=== PATIENT | female | born 1940 | race Caucasian/White ===

== ENCOUNTER 2017-06-10 09:15 | Inpatient (IN) | payer OTHER ==
[2017-06-10] MEDS: ACETAMINOPHEN 325 MG TAB PO ×2 (11:41→23:22)
[2017-06-10 11:51] LABS: ADD MAN DIFF? NO
[2017-06-10 11:52] LABS: HEMATOCRIT 45.7 % (37.0-47.0); HEMOGLOBIN 15.8 g/dl (12.0-16.0); MEAN CORPUSCULAR HEMOGLOBIN 29.9 pg (29.0-33.0); MEAN CORPUSCULAR HGB CONC 34.6 g/dl (32.0-37.0); MEAN CORPUSCULAR VOLUME 86.6 fl (82.0-101.0); MEAN PLATELET VOLUME 11.4 fl (7.4-10.4); PLATELET COUNT 219 10^3/UL (140-415); RED BLOOD COUNT 5.28 10^6/ul (4.20-5.40); RED CELL DISTRIBUTION WIDTH 13.2 % (11.5-14.5)
[2017-06-10 11:52] LABS: WHITE BLOOD COUNT 12.4 10^3/ul (4.8-10.8)
[2017-06-10 11:57] LABS: POSITIVE DIFF @See below
[2017-06-10 12:05] LABS: ADD UMIC YES; UR ASCORBIC ACID NEGATIVE (NEGATIVE); UR BILIRUBIN (Dip) NEGATIVE (NEGATIVE); UR BLOOD (Dip) 1+ mg/dL (NEGATIVE); UR CLARITY SLIGHTLY CLOUDY (CLEAR); UR COLOR YELLOW (YELLOW); UR GLUCOSE (Dip) 3+ mg/dL (NEGATIVE); UR KETONES (Dip) 2+ mg/dL (NEGATIVE); UR LEUKOCYTE ESTERASE (Dip) NEGATIVE Leu/ul (NEGATIVE); UR NITRITE (Dip) NEGATIVE (NEGATIVE); UR RBC 3 /HPF (0-5); UR SQUAMOUS EPITHELIAL CELL FEW /HPF (FEW); UR TOTAL PROTEIN (Dip) 2+ mg/dl (NEGATIVE); UR UROBILINOGEN (Dip) NEGATIVE (NEGATIVE); UR WBC 2 /HPF (0-5)
[2017-06-10 12:12] LABS: ALANINE AMINOTRANSFERASE 53 IU/L (13-69); ALBUMIN/GLOBULIN RATIO 1.25; ALKALINE PHOSPHATASE 98 IU/L (42-121); ANION GAP 24 (8-16); ASPARTATE AMINO TRANSFERASE 41 IU/L (15-46); BILIRUBIN,INDIRECT 0.2 mg/dl (0-1.1); BILIRUBIN,TOTAL 0.2 mg/dl (0.2-1.3); BLOOD UREA NITROGEN 7 mg/dl (7-20); CALCIUM 9.7 mg/dl (8.4-10.2); CARBON DIOXIDE 24 mmol/L (21-31); CHLORIDE 98 mmol/L (97-110); CREATININE 0.57 mg/dl (0.44-1.00); GLUCOSE 310 mg/dl (70-220); POTASSIUM 4.1 mmol/L (3.5-5.1); SODIUM 142 mmol/L (135-144)
[2017-06-10 12:14] LABS: INR 0.96; PARTIAL THROMBOPLASTIN TIME 28.1 Sec (25.0-35.0); PROTIME 12.9 Sec (11.9-14.9)
[2017-06-10 12:23] LABS: TROPONIN-I < 0.012 ng/ml (0.00-0.12)
[2017-06-10 12:40] LABS: ANISOCYTOSIS 2+ (0-0); BAND NEUTROPHILS #M 1.4 10^3/ul (0.0-0.6); BAND NEUTROPHILS % (M) 12 % (0-4); BASOPHIL #M 0.1 10^3/ul (0.0-0.0); BASOPHILS % (M) 1 % (0-2); LYMPHOCYTES #M 6.5 10^3/ul (0.8-2.9); LYMPHOCYTES % (M) 53 % (15-51); MICROCYTOSIS 2+ (0-0); PLATELET ESTIMATE NORMAL; POLYCHROMASIA 3+ (0-0); REACTIVE LYMPHOCYTES #M 0.3 10^3/ul (0.0-0.0); REACTIVE LYMPHOCYTES% (M) 3 % (0-0); SEGMENTED NEUTROPHILS (M) % 31 % (39-77); SMUDGE%M 9 % (0-0)
[2017-06-10] MEDS: CEFEPIME 2GM/50 ML (PMX) 50 ML IVPB ×2 (13:18→21:55)
[2017-06-10] MEDS: SODIUM CHLORIDE 0.9% 1L BAG IV* (13:19)
[2017-06-10] MEDS ORDERED: ONDANSETRON 4 MG INJ IV ×2 (13:30→14:30)
[2017-06-10] MEDS: VANCOMYCIN 1 GM (PMX) 250 ML IVPB (13:46)
[2017-06-10 14:10] LABS: LACTIC ACID 2.5 mmol/L (0.5-2.0)
[2017-06-10] MEDS ORDERED: hydrALAzine 20 MG INJ IV (14:30)
[2017-06-10] MEDS ORDERED: NITROGLYCERIN (SL) 0.4 MG TAB SL (14:30)
[2017-06-10] MEDS ORDERED: DOCUSATE SODIUM 100 MG CAP PO (14:30)
[2017-06-10] MEDS ORDERED: NA PHOSPHATE/BIPHOS 133 ML ENEMA PR (14:30)
[2017-06-10] MEDS ORDERED: NACL 0.9% 3 ML SYG IV (14:30)
[2017-06-10] MEDS ORDERED: ALBUTEROL/IPRATROPIUM (NEB) 3 ML AMP HHN (14:30)
[2017-06-10] MEDS ORDERED: LORAZEPAM 2 MG INJ IV (14:30)
[2017-06-10] MEDS ORDERED: morphine 2 MG INJ IV (14:30)
[2017-06-10] MEDS ORDERED: MAGNESIUM HYDROXIDE 30ML CUP PO (14:30)
[2017-06-10] MEDS ORDERED: VANCOMYCIN IV PER PHARMACY XX (14:30)
[2017-06-10 15:07] LABS: FREE T4 (FREE THYROXINE) 1.58 ng/dl (0.78-2.44)
[2017-06-10] MEDS: SOD CHLORIDE 0.9% 1,000 ML IV (15:07)
[2017-06-10] MEDS ORDERED: GLUCOSE GEL 15 GRAM TUBE BUCCAL (15:30)
[2017-06-10] MEDS ORDERED: GLUCOSE GEL 15 GRAM TUBE PO ×2 (15:30)
[2017-06-10] MEDS ORDERED: DEXTROSE 50% 50 ML SYRINGE IV ×2 (15:30)
[2017-06-10] MEDS ORDERED: GLUCAGON 1 MG INJ IM (15:30)
[2017-06-10 16:32] LABS: LACTIC ACID 2.3 mmol/L (0.5-2.0)
[2017-06-10] MEDS: INSULIN ASPART [NOVOLOG] 3 ML PEN SC ×2 (18:33→20:40)
[2017-06-10 19:03] LABS: LACTIC ACID 2.2 mmol/L (0.5-2.0)
[2017-06-10] MEDS: HEPARIN 5,000 UNIT/0.5 ML VIAL SC (20:39)
[2017-06-10 23:17] LABS: LACTIC ACID 1.6 mmol/L (0.5-2.0)
[2017-06-11] MEDS: SOD CHLORIDE 0.9% 1,000 ML IV ×2 (00:24→10:24)
[2017-06-11] MEDS: INSULIN ASPART [NOVOLOG] 3 ML PEN SC ×6 (01:16→20:51)
[2017-06-11] MEDS: ACCU-CHEK XX (01:18)
[2017-06-11 02:46] LABS: LACTIC ACID 1.2 mmol/L (0.5-2.0)
[2017-06-11 08:33] LABS: WHITE BLOOD COUNT 8.2 10^3/ul (4.8-10.8)
[2017-06-11 08:34] LABS: HEMATOCRIT 39.1 % (37.0-47.0); HEMOGLOBIN 13.4 g/dl (12.0-16.0); MEAN CORPUSCULAR HGB CONC 34.3 g/dl (32.0-37.0); MEAN CORPUSCULAR VOLUME 87.7 fl (82.0-101.0); MEAN PLATELET VOLUME 11.6 fl (7.4-10.4); PLATELET COUNT 184 10^3/UL (140-415); RED BLOOD COUNT 4.46 10^6/ul (4.20-5.40); RED CELL DISTRIBUTION WIDTH 13.3 % (11.5-14.5)
[2017-06-11] MEDS: PANTOPRAZOLE (EC) 40 MG TAB PO (08:34)
[2017-06-11] MEDS: FISH OIL 1,000 MG CAP PO (08:34)
[2017-06-11] MEDS: ASPIRIN (EC) 81 MG TAB PO (08:35)
[2017-06-11 08:38] LABS: ADD MAN DIFF? YES; POSITIVE DIFF @See below
[2017-06-11] MEDS: ACETAMINOPHEN 325 MG TAB PO (08:46)
[2017-06-11] MEDS: HEPARIN 5,000 UNIT/0.5 ML VIAL SC ×2 (08:48→20:51)
[2017-06-11 08:53] LABS: LACTIC ACID 1.3 mmol/L (0.5-2.0)
[2017-06-11 08:54] LABS: HEMOGLOBIN A1C 10.8 % (0-5.9)
[2017-06-11 08:55] LABS: CHOL/HDL RATIO 4.5 RATIO; HDL CHOLESTEROL 28 mg/dl (33-92); LDL CHOLESTEROL,CALCULATED 53 mg/dl; TRIGLYCERIDES 225 mg/dl (0-149)
[2017-06-11 08:55] LABS: CHOLESTEROL 126 mg/dl (100-200)
[2017-06-11] MEDS: CEFEPIME 2GM/50 ML (PMX) 50 ML IVPB (09:00)
[2017-06-11 09:02] LABS: ANION GAP 15 (8-16); BLOOD UREA NITROGEN 6 mg/dl (7-20); CALCIUM 8.6 mg/dl (8.4-10.2); CARBON DIOXIDE 29 mmol/L (21-31); CHLORIDE 105 mmol/L (97-110); CREATININE 0.43 mg/dl (0.44-1.00); GLUCOSE 175 mg/dl (70-220); MAGNESIUM 1.3 mg/dl (1.7-2.5); PHOSPHORUS 2.6 mg/dl (2.5-4.9); POTASSIUM 3.8 mmol/L (3.5-5.1); SODIUM 145 mmol/L (135-144)
[2017-06-11 10:08] LABS: ANISOCYTOSIS 1+ (0-0); BAND NEUTROPHILS #M 0.2 10^3/ul (0.0-0.6); BAND NEUTROPHILS % (M) 3 % (0-4); BASOPHILS % (M) 1 % (0-2); EOSINOPHILS % (M) 2 % (0-7); LYMPHOCYTES #M 3.6 10^3/ul (0.8-2.9); LYMPHOCYTES % (M) 45 % (15-51); MICROCYTOSIS 1+ (0-0); MONOCYTE #M 0.4 10^3/ul (0.3-0.9); MONOCYTES % (M) 5 % (0-11); PLATELET ESTIMATE NORMAL; POLYCHROMASIA 2+ (0-0); REACTIVE LYMPHOCYTES #M 0.9 10^3/ul (0.0-0.0); REACTIVE LYMPHOCYTES% (M) 12 % (0-0); SEG NEUT #M 2.6 10^3/ul (1.6-7.5); SEGMENTED NEUTROPHILS (M) % 32 % (39-77); SMUDGE%M 10 % (0-0)
[2017-06-11 12:09] LABS: LACTIC ACID 1.2 mmol/L (0.5-2.0)
[2017-06-11] MEDS: GUAIFENESIN 20 MG/ML 5ML CUP PO ×3 (12:45→23:02)
[2017-06-11] MEDS: BENAZEPRIL 20 MG TAB PO (12:45)
[2017-06-11] MEDS: MAGNESIUM SULFATE 3 GM in DEXTROSE 5% 100 ML IVPB (12:45)
[2017-06-11] MEDS ORDERED: CEPASTAT LOZENGE MT (13:00)
[2017-06-11] MEDS: CEFTRIAXONE 2 GM/50 ML (PMX) 50 ML IVPB (17:23)
[2017-06-11] MEDS ORDERED: INSULIN ASPART [NOVOLOG] 3 ML PEN SC (17:35)
[2017-06-12] MEDS: ACCU-CHEK XX (02:48)
[2017-06-12] MEDS: HYDROCODONE/APAP (5/325) TAB PO ×2 (04:46→11:02)
[2017-06-12] MEDS: PANTOPRAZOLE (EC) 40 MG TAB PO (06:10)
[2017-06-12] MEDS: FISH OIL 1,000 MG CAP PO (08:26)
[2017-06-12] MEDS: ASPIRIN (EC) 81 MG TAB PO (08:27)
[2017-06-12] MEDS: BENAZEPRIL 20 MG TAB PO (08:27)
[2017-06-12] MEDS: INSULIN ASPART [NOVOLOG] 3 ML PEN SC ×3 (08:30→17:55)
[2017-06-12] MEDS: HEPARIN 5,000 UNIT/0.5 ML VIAL SC ×2 (08:30→08:32)
[2017-06-12 09:05] LABS: HEMATOCRIT 38.5 % (37.0-47.0); HEMOGLOBIN 13.5 g/dl (12.0-16.0); MEAN CORPUSCULAR HEMOGLOBIN 30.2 pg (29.0-33.0); MEAN CORPUSCULAR HGB CONC 35.1 g/dl (32.0-37.0); MEAN CORPUSCULAR VOLUME 86.1 fl (82.0-101.0); MEAN PLATELET VOLUME 11.6 fl (7.4-10.4); PLATELET COUNT 201 10^3/UL (140-415); RED BLOOD COUNT 4.47 10^6/ul (4.20-5.40); RED CELL DISTRIBUTION WIDTH 13.2 % (11.5-14.5)
[2017-06-12 09:05] LABS: WHITE BLOOD COUNT 10.7 10^3/ul (4.8-10.8)
[2017-06-12 09:09] LABS: POSITIVE DIFF @See below
[2017-06-12 09:10] LABS: ADD MAN DIFF? YES
[2017-06-12 09:18] LABS: ANION GAP 15 (8-16); BLOOD UREA NITROGEN 9 mg/dl (7-20); CALCIUM 8.7 mg/dl (8.4-10.2); CARBON DIOXIDE 26 mmol/L (21-31); CHLORIDE 104 mmol/L (97-110); CREATININE 0.48 mg/dl (0.44-1.00); GLUCOSE 171 mg/dl (70-220); POTASSIUM 3.4 mmol/L (3.5-5.1); SODIUM 142 mmol/L (135-144)
[2017-06-12 09:21] LABS: PHOSPHORUS 2.9 mg/dl (2.5-4.9)
[2017-06-12 09:21] LABS: MAGNESIUM 1.6 mg/dl (1.7-2.5)
[2017-06-12 10:40] LABS: ANISOCYTOSIS 1+ (0-0); EOSINOPHILS % (M) 1 % (0-7); GIANT THROMBO% (M) 1 % (0-0); LYMPHOCYTES #M 4.6 10^3/ul (0.8-2.9); LYMPHOCYTES % (M) 43 % (15-51); MICROCYTOSIS 1+ (0-0); MONOCYTE #M 0.2 10^3/ul (0.3-0.9); MONOCYTES % (M) 2 % (0-11); PLATELET ESTIMATE NORMAL; POLYCHROMASIA 1+ (0-0); REACTIVE LYMPHOCYTES #M 1.8 10^3/ul (0.0-0.0); REACTIVE LYMPHOCYTES% (M) 17 % (0-0); SEGMENTED NEUTROPHILS (M) % 37 % (39-77); SMUDGE%M 9 % (0-0)
[2017-06-12] MEDS: ACETAMINOPHEN 325 MG TAB PO (12:04)
[2017-06-12] MEDS: GUAIFENESIN 20 MG/ML 5ML CUP PO (12:04)
[2017-06-12] MEDS: POTASSIUM CHLORIDE (SR) 20 MEQ TAB PO (15:13)
[2017-06-12] MEDS: MAGNESIUM SULFATE 2 GM/50 ML 50 ML IVPB (15:13)
[2017-06-12] MEDS: CEFTRIAXONE 2 GM/50 ML (PMX) 50 ML IVPB (17:00)
== END 2017-06-12 18:43 | disposition home health service (06) | DRG 872 ==
LOC: E/R 09:15 → MS4 13:05
DX: A41.9 Sepsis, unspecified organism (principal); E11.9 Type 2 diabetes mellitus without complications; I10 Essential (primary) hypertension; R65.20 Severe sepsis without septic shock; J06.9 Acute upper respiratory infection, unspecified; Z79.84 Long term (current) use of oral hypoglycemic drugs; Z79.82 Long term (current) use of aspirin
CPT/HCPCS: 36415; 71045; 80048; 80053; 80061; 81001; 82962; 83036; 83605; 83735; 84100; 84439; 84443; 84484; 85025; 85610; 85730; 87040; 87086; 87400; 93005; 96374; 96375; 97116; 97162; 97530; 97535; 99291-25